=== PATIENT | male | born 1970 | race Caucasian/White ===

== ENCOUNTER 2020-11-14 16:00 | Outpatient (RCR) | payer BC, SELFPAY | END 2020-11-18 10:36 | disposition home or self-care (01) | LOC: HO.PT 16:00 | PROVIDERS: PCP Family Medicine; Visit Provider Family Medicine | DX: M76.61 Achilles tendinitis, right leg (principal) | CPT/HCPCS: 97033; 97110; 97112; 97140; 97161; 97530 ==

== ENCOUNTER 2022-08-07 02:27 | Emergency (ER) | payer BC, SELFPAY ==
--- NOTE | ~2022-08-07 | XR_ITS ---
EXAMINATION: XR CHEST CLINICAL INFORMATION: Right-sided pain with cough COMPARISON: None available. TECHNIQUE: 2 views of the chest were obtained. FINDINGS: Elevation of the anterior right hemidiaphragm favoring eventration. No focal consolidation is seen. No evidence of pneumothorax, pleural effusion, or pulmonary edema. The cardiomediastinal contour is unremarkable. No acute osseous findings are seen. XR/XR chest 2V IMPRESSION: No acute cardiopulmonary findings.
[2022-08-07 02:28] VITALS: BP 152/87; PULSE 100; RESP 18; TEMP 37.3; O2SAT 96; BMI 38.2
--- NOTE | 2022-08-07 05:11 | ED_ITS ---
HPI - URI/Sore Throat General Chief Complaint: Upper Respiratory Symptoms Stated Complaint: Right Rib pain Time Seen by Provider: 08/07/22 04:36 Source: patient Mode of arrival: ambulatory Limitations: no limitations History of Present Illness HPI Narrative: Patient with History of asthma well-controlled been coughing for last few weeks notes pain in the right anterior chest after coughing last night no significant pain now no significant shortness of breath no fever or chills Related Data Previous Rx's Medication Instructions Recorded ibuprofen 600 mg tablet 600 mg PO Q6H PRN fever or pain 08/07/22 #30 tabs Allergies Allergy/AdvReac Type Severity Reaction Status Date / Time No Known Allergies Allergy Unverified 01/04/20 19:36 [No Known Allergies*] Review of Systems Review of Systems: Yes all other systems are reviewed and are negative [facility] Social History Social History Advance Directives: No Advance Directives Information Provided: Yes Physical Exam Vital Signs: Vital Signs: Last Vital Signs Temp 97.6 F 08/07/22 05:12 Pulse 83 08/07/22 05:12 Resp 19 08/07/22 05:12 BP 130/61 08/07/22 05:12 Pulse Ox 97 08/07/22 05:12 O2 Del Method Room Air 08/07/22 05:12 BMI result Body Mass Index 38.2 Appearance: Alert. Oriented X3. No acute distress. ENT: Pharynx normal. Oral Mucosa moist Neck: Normal inspection. Neck supple. CVS: Normal heart rate and rhythm. Pulses normal. Respiratory: No respiratory distress local tenderness right anterior rib Equal air entry bilateral, no wheezing/rales/rhonchi Abdomen: Soft and nontender. Bowel sounds are present, no mass palpable, no CVA tenderness Skin: Skin warm and dry. Normal skin color. Normal skin turgor. Extremities: No lower extremity edema. No calf tenderness Neuro: Oriented X 3 Medications Administered Discontinued Medications Generic Name Dose Route Start Last Admin Trade Name Freq PRN Reason Stop Dose Admin Ibuprofen 600 mg 08/07/22 05:14 08/07/22 05:48 Ibuprofen 600 Mg Tablet PO 08/07/22 05:15 600 mg ONCE ONE Administration Medical Decision Making Medical Decision Making [facility] Narrative: Patient chest x-ray negative for any pneumothorax or rib fractures likely patient has patient musculoskeletal pain, vital stable discharge patient home Discharge Plan Discharge Clinical Impression: Anterior chest wall pain Patient Disposition: Home, Self-Care Instructions: Chest Wall Pain (ED) Additional Instructions: Your pain is likely musculoskeletal from coughing Ibuprofen for pain Follow with PCP Prescriptions: New ibuprofen 600 mg tablet 600 mg PO Q6H PRN (Reason: fever or pain) Qty: 30 0RF Interventions: ED Discharge Assessment Last Done: 08/07/22 06:18 Discharge Date/Time: 08/07/22 06:19
[2022-08-07 05:12] VITALS: BP 130/61; PULSE 83; RESP 19; TEMP 36.4; O2SAT 97
[2022-08-07] MEDS: Ibuprofen 600 MG TABLET PO (05:48)
== END 2022-08-07 06:19 | disposition home or self-care (01) ==
PROVIDERS: Emergency Provider Internal Medicine
DX: R07.89 Other chest pain (principal); R07.81 Pleurodynia
CPT/HCPCS: 71046; 99283; 99284